=== PATIENT | male | born 1965 | race Caucasian/White ===

== ENCOUNTER 2020-06-07 08:02 | Outpatient (REF) | payer OTHER, SELFPAY ==
[2020-06-07 08:26] LABS: COVID-19 Test Negative (Negative); IDNOW Serial# 55D5AD1C
== END 2020-06-07 08:03 | disposition home or self-care (01) ==
LOC: HO.LAB 08:02
PROVIDERS: Visit Provider Internal Medicine
DX: Z20.822 Contact with and (suspected) exposure to COVID-19 (principal)
CPT/HCPCS: 36415; 87635; C9803

== ENCOUNTER 2022-09-05 13:17 | Outpatient (AMB) | payer OTHER, SELFPAY ==
[2022-09-05 13:39] VITALS: BMI 33.8
--- NOTE | 2022-09-05 13:39 | A.OFFVIS_ITS ---
Intake VS Expanded 09/05/22 13:39 09/11/22 08:39 Height 5 ft 6 in 5 ft 6 in Weight 209 lb 3.499 oz 209 lb BMI 33.8 33.7 Intake Visit Reasons: Lipid Disorder, Morbid Obesity HPI Nutrition Presentation Details Pt presents for MNT for lipid disorder and obesity. The Pt was referred by CAPRI De Oliveira Pt reports typically feeling full and working on choosing sausage tier or softer meals Pt has past med hx of liver CA teated with radiofrequency ablation Pt has hx of cirrhosis, Hep C , Protstate CA treated with chemotherapy Pt presents B: fruit juices or water L: apple turnover and banana D: rice/ribs/salad, water snack on crackers or pastries food frequency: fruit: 0-1/d, + juice ve-2x/wk dairy: 0-1/d protein: beef/pork/poultry/eggs/cheese, fish 0-2 x/wk starches : rice/pasta/peas/corn beverages: water, juice/coffee ETOH/SMoking: denies IOR-Ongeuwz-Od.Jeor Equation Height 5 ft 6 in Weight 209 lb Resting Metabolic Rate 1709.53 Calculated Activity Level Sedentary Calories Needed to Maintain Weight 2051.44 Diagnosis Nutrition problem #1 food nutri know defi As related to (etiology) #1 diagnosis As evidenced by (sign/symptom) #1 no prior educ - nutri rec Learning/Education Readiness to learn good Stages of change preparation Educational materials provided Yes (meal planning ) Most Recent Diabetes Results: No Data to Display Assessment & Plan Assessment & Plan (1) Lipid disorder: Code(s): E78.9 - Disorder of lipoprotein metabolism, unspecified Plan: wt 209 lbs Est kcal needs as per MSJ: 8343-1632 (40% carb, 30% protein/fat) Est fluid needs as per 25-30 ml/d: 2375 Est prot per day as per 1 g/kg bw: 95 Recommend fiber intake : 8-10 g per day and gradually increase as tolerated Recommend sodium intake per day : less than 2000 mg Educated patient on: ( R = reviewed V = verbalizes understanding N/R = needs review N/A = not applicable * Food sources of carbohydrate, adequate serving sizes and its role in various health conditions: NR * Differences between complex carbohydrates a simple carbohydrates, role of fiber in diet: NR * Differences between types of fats and role in diet (mono on saturated fat fatty acids, saturated fatty acids, trans fats): R * Food sources of sodium in salt and healthy modifications for heart health in kidney health: R * Vitamins and minerals: R * Healthy plate method concept: R V * Physical activity: Benefits a precaution: NR * (2) Obesity (BMI 30.0-34.9): Code(s): E66.9 - Obesity, unspecified Patient Instructions: Reduce on high fat sources of foods ,see list of high fat and lower fat alternatives Follow healthy plate method at dinner 3-4 times/wk Coding Level of Care Code Nutr Indiv Intake (30527) Diagnoses Lipid disorder E78.9 Obesity (BMI 30.0-34.9) E66.9 Time Spent (min) 30
[2022-09-11 08:39] VITALS: BMI 33.7
== END 2022-09-05 14:27 | disposition home or self-care (01) ==
PROVIDERS: PCP Internal Medicine; Visit Provider Dietitian, Registered
DX: E78.9 Disorder of lipoprotein metabolism, unspecified (principal); E66.9 Obesity, unspecified

== ENCOUNTER → 2022-09-05 13:17 | Outpatient (BNVA) | payer OTHER, SELFPAY | PROVIDERS: PCP Internal Medicine; Visit Provider Dietitian, Registered | DX: E78.9 Disorder of lipoprotein metabolism, unspecified (principal); E66.9 Obesity, unspecified; Z68.33 Body mass index [BMI] 33.0-33.9, adult | CPT/HCPCS: 97802 ==